=== PATIENT | male | born 1955 | race Caucasian/White ===

== ENCOUNTER 2019-01-14 16:53 | Inpatient (IN) ==
[2019-01-14] MEDS ORDERED: NS 1,000 ML ONE (17:29)
[2019-01-14] MEDS ORDERED: NS 1,000 ML IV ONE (17:31)
[2019-01-14] MEDS ORDERED: MORPHINE IV ONE (17:32)
[2019-01-14] MEDS ORDERED: ZOFRAN IV ONE (17:32)
[2019-01-14 17:47] LABS: BASO# 0.02 X1000 (0.0-0.2); BASO% 0.1 % (0.0-0.8); EOS# 0.06 X1000 (0.0-0.7); EOS% 0.3 % (0.0-10.0); HEMOGLOBIN 13.6 g/dL (14.0-18.0); IMM GRAN# 0.04 X1000 (0.0-0.04); IMM GRAN% 0.2 % (0.0-0.5); LYMPH# 2.34 X1000 (1.2-3.4); LYMPH% 13.6 % (20.5-51.1); MCH 30.2 PG (27-31); MCHC 33.2 g/dL (33-37); MCV 90.9 FL (81-99); MONO# 0.88 X1000 (0.11-0.59); MONO% 5.1 % (1.7-9.3); MPV 9.9 FL (7.4-10.4); NEUT% 80.7 % (42.2-75.2); PLT 365 X1000 (130-400); RBC 4.51 XMIL (4.7-6.1); RDW 14.4 % (11.5-14.5); WBC 17.24 X1000 (4.8-10.8)
--- NOTE | 2019-01-14 17:54 | EKG Report ---
Test Performed on : 01/14/2019 5:28:30 PM Test Reason : CP Blood Pressure : / mmHG Vent. Rate : 148 BPM Atrial Rate : 156 BPM P-R Int : 000 ms QRS Dur : 142 ms QT Int : 336 ms P-R-T Axes : 000 -31 001 degrees QTc Int : 527 ms Atrial fibrillation. with rapid ventricular response. Left axis deviation Right bundle branch block Abnormal ECG When compared with ECG of 23-MAY-2017 23:18, Atrial fibrillation. has replaced Sinus rhythm. Vent. rate has increased BY 67 BPM Unconfirmed Result
[2019-01-14 17:58] LABS: INR 1.17; PROTIME 15.5 Seconds (11.0-16.0)
[2019-01-14 17:59] LABS: PTT 28.9 Seconds (22.3-41.8)
[2019-01-14] MEDS ORDERED: LOPRESSOR IV ONE (18:10)
[2019-01-14 18:12] LABS: AGAP 15; ALBUMIN 3.9 g/dL (3.5-5.0); ALKALINE PHOSPHATASE 79 U/L (32-122); BUN 13 mg/dL (8-22); CALCIUM 9.4 mg/dL (8.8-10.2); CHLORIDE 100 mmol/L (98-107); COSMO 284; CREATININE 0.5 mg/dL (0.7-1.2); ESTIMATED GFR > 60; GLUCOSE 171 mg/dL (70-104); GOT 17 U/L (10-34); GPT 13 U/L (10-44); MAGNESIUM 1.5 mg/dL (1.5-2.7); POTASSIUM 3.5 mmol/L (3.5-5.1); SODIUM 140 mmol/L (136-145); TCO2 26 mmol/L (25-35); TOTAL PROTEIN 7.2 g/dL (6.3-8.3)
--- NOTE | 2019-01-14 18:24 | Diag Imaging Result Doc PS360 ---
EXAM: CHEST-PORTABLE HISTORY: CP TECHNIQUE: Portable chest COMPARISON: 11/13/2018 FINDINGS: The lungs are well expanded. The heart is not enlarged. The vessels are not distended. There are right lower lobe infiltrates. No effusion identified. IMPRESSION: Right lower lobe pneumonia. Electronically signed by Chun Tompkins 01/14/2019 6:22 PM
[2019-01-14] MEDS ORDERED: SOLU-MEDROL IV ONE (18:25)
[2019-01-14] MEDS ORDERED: ROCEPHIN 1 GM in NS 50 ML IV ONE (18:25)
--- NOTE | 2019-01-14 18:29 | PROVIDER DOCUMENTATION ---
This chart was entered by Shari Jones Scribe, acting as scribe for Abdirizak Amador MD. HPI-Respiratory General - General Chief Complaint: Shortness of Breath Stated Complaint: CP/SOB "ASPIRATING" X 3 DAYS Time Seen by Provider: 01/14/19 17:23 Source: patient, family () Allergies/Adverse Reactions: Patient Allergies Allergy/AdvReac Type Severity Reaction Status Date / Time Sulfa (Sulfonamide Allergy HIVES Verified 01/14/19 17:49 Antibiotics) ciprofloxacin [From Cipro] AdvReac NAUSEA/VOMI Verified 05/31/17 12:39 TING ciprofloxacin HCl * AdvReac NAUSEA/VOMI Verified 05/31/17 12:39 [From Cipro] TING Home Medications: Home Medication List Medication Instructions Recorded Confirmed Last Taken Type Aspirin 325 mg PO DAILY 01/14/19 01/14/19 Unknown History Atorvastatin Calcium [Lipitor] 40 mg PO DAILY 01/14/19 01/14/19 Unknown History Buprenorphine/Naloxone S.l. 8 mg SUBLINGUAL BID 01/14/19 01/14/19 Unknown History [Suboxone 8 mg/2 mg] Cetirizine HCl [Zyrtec] 10 mg PO DAILY 01/14/19 01/14/19 Unknown History Metoprolol Succinate E.r. [Toprol 25 mg PO BID 01/14/19 01/14/19 Unknown History Xl] Omeprazole 10 mg PO DAILY 01/14/19 01/14/19 Unknown History - History of Present Illness-Resp Nature of Presenting Problem: 63 yowm presents to the ed with c/o sob, trouble swallowing, gerd, fatigue, nausea, vomiting, decreased appetite, weakness, chest pain, cough with bloody sputum and subjective fever. pt sts sx have been intermittent and are getting worse. pt sees multiple dr's for sx and sts sx have been present for 1 year. pt on exam is mildly sob and is in afib with rvr Quality of Pain: reports: aching Severity in ED: reports: mild Onset/Duration: reports: other (1 year) Timing: reports: intermittent, getting worse (today) Exposure: reports: unknown cause Cough Quality/Degree: reports: mild, blood streaked sputum Episode Frequency: chronic episodes Current Respiratory Medication Therapy: Initiated see nurses note Modifying Factors: improves with: sitting upright. worse with: exertion, coughing Associated Symptoms: reports: chest pain/soreness, cough, fever/chills (subjective), heart racing, shortness of breath, other (sore throat) Similar Symptoms Previously?: Yes Recently seen or treated by another doctor?: Yes (has seen multiple dr's) Review of Systems - Adult - REVIEW OF SYSTEMS - ADULT Constitutional: reports: see HPI, chills, fever (subjective), fatique Eyes: reports: no symptoms reported Ears, Nose, Mouth & Throat: reports: see HPI, throat pain Cardiovascular: reports: see HPI, chest pain, palpitations Respiratory: reports: see HPI, chronic cough, dyspnea on exertion, shortness of breath Gastrointestinal: reports: see HPI, abdominal pain, difficulty swallowing, frequent heartburn, nausea, poor appetite, vomiting Genitourinary: reports: no symptoms reported Musculoskeletal: denies: back pain, neck pain Integumentary: reports: no symptoms reported Neurological: denies: dizziness/vertigo, headache/migraines Psychiatric: reports: no symptoms reported Endocrine: reports: no symptoms reported Hematologic/Lymphatic: reports: no symptoms reported Allergic/Immunologic: reports: no symptoms reported All Other Systems: Reviewed and Negative Past History - Adult - PAST MEDICAL HISTORY-ADULT Review of Records: reports: Old Records Reviewed, Nursing Assessment Review, Medications Reviewed, Social history reviewed & non-contributory. Major Childhood Illnesses: reports: denies history Cardiovascular: reports: A-Fib, CAD, HTN, hyperlipidemia Respiratory: reports: bronchitis, pneumonia, sleep apnea Gastrointestinal: reports: GERD Genitourinary: reports: denies history Musculoskeletal: reports: denies history Neurological: reports: denies history Psychiatric: reports: anxiety Endocrine/Immune: reports: denies history Other Conditions: reports: denies history - PRIOR SURGERIES/PROCEDURES Surgical/Procedure History: reports: orthopedic (extremity) - IMMUNIZATION STATUS Childhood Immunizations: See Nurse Assessment Flu Vaccine: See Nurse Assessment - FAMILY HISTORY Family History: reviewed, not pertinent - SOCIAL HISTORY Smoking: quit less than 1 year Substance Use: denies Living Situation: family Physical Exam-General - PHYSICAL EXAM-ADULT Initial Vital Signs Reviewed: Yes - CONSTITUTIONAL General Appearance: appears well, alert, mild distress, obese - EYES Eyes: PERRL/EOMI - HEAD, EARS, NOSE, MOUTH & THROAT HENMT: moist mucous membranes - NECK Neck: non-tender, full range of motion, normal inspection - RESPIRATORY Respiratory: chest non-tender, lungs clear, respiratory distress (mild sob 90% on RA), increased rate (24) - CARDIOVASCULAR Cardiovascular: normal peripheral pulses, irregularly irregular (135) - CHEST (BREASTS) Chest/Breast: no tenderness - GASTROINTESTINAL (ABDOMEN) Abdominal Exam: normal bowel sounds, non tender, soft - GENITOURINARY Male Genitalia: deferred Rectal Exam: deferred Hemoccult Exam: deferred - MUSCULOSKELETAL Back Exam: normal inspection, no CVA tenderness, no vertebral tenderness Extremity: normal range of motion, non-tender, normal gait, normal inspection - SKIN Integumentary: normal color, normal turgor, warm/dry - NEUROLOGIC Neurologic: grossly normal - PSYCHIATRIC Psych/Mental Status: normal mood/affect, normal thought content, normal thought process, oriented x 3 - HEART Score HEART Score: History: Slightly Suspicious HEART Score: ECG: Non-Specific Repolarization Disturbance/LBBB/PM HEART Score: Age: 45-65 Years HEART Score: Risk Factors for Atherosclerotic Disease: > or = 3 Risk Factors or History of Atherosclerotic Disease HEART Score: Troponin: < or = Normal Limit Total HEART Score:: 4 Progress - PLAN OF CARE/RESULTS Progress/Plan/Lab Results: Vital Signs - 8 hr 01/14/19 17:01 01/14/19 18:05 01/14/19 18:19 Temperature 97.8 F Pulse Rate 135 H 132 H 113 H Respiratory Rate 24 25 H 11 L Blood Pressure 118/73 128/101 129/79 O2 Sat by Pulse Oximetry 90 L 93 L Laboratory Results - last 24 hr 01/14/19 01/14/19 01/14/19 17:30 17:30 17:30 WBC 17.24 H RBC 4.51 L Hgb 13.6 L Hct 41.0 L MCV 90.9 MCH 30.2 MCHC 33.2 RDW Std Deviation 14.4 Plt Count 365 MPV 9.9 Immature Gran % (Auto) 0.2 Neut % (Auto) 80.7 H Lymph % (Auto) 13.6 L [place] % (Auto) 5.1 Eos % (Auto) 0.3 Baso % (Auto) 0.1 Immature Gran # (Auto) 0.04 Neut # (Auto) 13.90 H Lymph # (Auto) 2.34 [place] # (Auto) 0.88 H Eos # (Auto) 0.06 Baso # (Auto) 0.02 PT INR PTT (Actin FS) Sodium 140 Potassium 3.5 Chloride 100 Carbon Dioxide 26 Anion Gap 15 BUN 13 Creatinine 0.5 L Estimated GFR/1.73 m2 > 60 BUN/Creatinine Ratio 26 Glucose 171 H Calculated Osmolality 284 Calcium 9.4 Magnesium 1.5 Total Bilirubin 0.90 AST 17 ALT 13 Alkaline Phosphatase 79 Troponin T Uqi-U-Yhjummvdexs Pept Total Protein 7.2 Albumin 3.9 Globulin 3.0 Albumin/Globulin Ratio 1.0 Plasma Lactate 2.5 H 01/14/19 01/14/19 01/14/19 17:30 17:30 17:30 WBC RBC Hgb Hct MCV MCH MCHC RDW Std Deviation Plt Count MPV Immature Gran % (Auto) Neut % (Auto) Lymph % (Auto) [place] % (Auto) Eos % (Auto) Baso % (Auto) Immature Gran # (Auto) Neut # (Auto) Lymph # (Auto) [place] # (Auto) Eos # (Auto) Baso # (Auto) PT 15.5 INR 1.17 PTT (Actin FS) 28.9 Sodium Potassium Chloride Carbon Dioxide Anion Gap BUN Creatinine Estimated GFR/1.73 m2 BUN/Creatinine Ratio Glucose Calculated Osmolality Calcium Magnesium Total Bilirubin AST ALT Alkaline Phosphatase Troponin T < 0.010 [id number] Pept 472 H Total Protein Albumin Globulin Albumin/Globulin Ratio Plasma Lactate Orders Category Date Time Status Cardiac Monitoring DIRECTED Care 01/14/19 17:32 Active Oxygen Therapy- ED Nursing DIRECTED Care 01/14/19 17:43 Active Saline Loc NOW Care 01/14/19 17:32 Active CHEST-PORTABLE [RAD] Stat Exams 01/14/19 17:35 Completed BLOOD CULTURE [BLDCUL] Stat Lab 01/14/19 17:33 Ordered CBC WITH ELECTRONIC DIFF [HEME] Stat Lab 01/14/19 17:30 Completed COMPREHENSIVE METABOLIC PANEL [CHEM] Stat Lab 01/14/19 17:30 Completed FREE T4 Stat Lab 01/14/19 17:30 Received LACTATE, PLASMA [CHEM] Stat Lab 01/14/19 17:30 Completed MAGNESIUM [CHEM] Stat Lab 01/14/19 17:30 Completed PRO B-NATRIURETIC PEPTIDE Stat Lab 01/14/19 17:30 Completed PROTIME WITH INR [COAG] Stat Lab 01/14/19 17:30 Completed PTT [COAG] Stat Lab 01/14/19 17:30 Completed TROPONIN T Stat Lab 01/14/19 17:[address] W/POSS RFLX CULT [URINALYSIS] Stat Lab 01/14/19 17:35 Uncollected URINE DRUG SCREEN PL Stat Lab 01/14/19 17:35 Uncollected 0.9% Sodium Chloride Inj [Ns] 1,000 ml Med 01/14/19 17:29 Discontinued .ROUTE As directed 0.9% Sodium Chloride Inj [Ns] 1,000 ml Med 01/14/19 17:31 Active IV 999 mls/hr Metoprolol [Lopressor] Med 01/14/19 18:10 Discontinued 5 mg IV NOW ONE Morphine Med 01/14/19 17:32 Discontinued 4 mg IV NOW ONE Ondansetron [Zofran] Med 01/14/19 17:32 Discontinued 4 mg IV NOW ONE EKG [EKG] Stat Ther 01/14/19 17:33 Draft Result Diagrams: 01/14/19 17:30 01/14/19 17:30 - REASSESSMENT Reassessment #1 Time Reassessed: 17:48 Status: unchanged Reassessment #2 Time Reassessed: 18:26 Status: improving (HR DOWN TO 120, WBC 17K, PROBABLE FRESH INFILTRATE ON CHRONIC SCARS IN RIGHT CHEST. ADMIT TO ICU) - EKG 1 Time of EKG reading by physician:: 17:28 EKG Read and Signed by:: Abdirizak Amador EKG Interpretation (*Must complete 3 of following elements*): Abnormal Rate: 148 Rhythm: afib with rvr [place]: left (axis deviation) QRS: RBB CT Interval: normal ST Wave: normal - XRAY 1 XRAY: Bilateral XRAY Study: Chest Impression: See EMR Report - CONSULTS/PCP/HOSPITALIST Notification #1 *Consult/PCP/Hospitalist*: Yanna KIRKLAND Time Discussed: 18:15 Consult Disposition: Admit Departure - Departure Date of Disposition Decision: 01/14/19 Time of Disposition Decision: 18:27 DIAGNOSIS: Pneumonia, SOB (shortness of breath), Atrial fibrillation with RVR, Chest pain, Sepsis Disposition: ADMITTED INPATIENT 09 Certified Medical Emergency: Emergent Condition: Fair Referrals and Follow-Ups: Deion Fernandez MD [Primary Care Provider] - - Critical Care Note This patient required my direct & personal management of CC.: Yes Total Time (mins): 30 Critical Care Statement: This patient required my direct personal management to treat or rule out processes, the absence of which, could potentiallly result in sudden, clinically significant life or limb threatening deterioration. Attestation - Physician/ MARIO Attestation Patient care was provided by Advanced Practice Provider:: No The physician spent face to face time with patient:: Yes Advanced Practice Provider documentation review:: Supervising physician onsite and consulted in the evaluation and care of this patient. The physician did have a face to face encounter with the patient. This chart was documented by the indicated scribe, (Shari Jones Scribe) and accurately reflects the services I performed and decisions made by me, Abdirizak Frazier MD, as attested by the provider's signature.
[2019-01-14] MEDS ORDERED: ZITHROMAX 500 MG/NS 500 MG/250 ML IVPB IV SCH (18:45)
[2019-01-14] MEDS ORDERED: CARDIZEM 100 MG/NS 100 MG/100 ML IVPB IV SCH (19:06)
[2019-01-14] MEDS ORDERED: FLAGYL 500 MG/NS 500 MG/100 ML IVPB IV SCH (19:06)
[2019-01-14] MEDS: ZITHROMAX PO SCH (19:27)
[2019-01-14] MEDS: FLAGYL 500 MG/NS 500 MG/100 ML IVPB IV SCH (19:27)
[2019-01-14] MEDS: PROTONIX IV SCH (19:27)
[2019-01-14] MEDS: NS 1,000 ML IV SCH (19:27)
[2019-01-14] MEDS: SUBOXONE 8 MG/2 MG FILM SL SCH (20:00)
[2019-01-14] MEDS: ZOFRAN IV PRN (20:00)
[2019-01-14] MEDS: TYLENOL PO PRN (20:00)
[2019-01-14] MEDS: CARDIZEM 125 MG/D5W 125 MG/125 ML IVPB IV SCH (20:18)
[2019-01-14] MEDS ORDERED: SUBOXONE 8 MG/2 MG SL SCH (21:00)
[2019-01-14 22:10] LABS: BILIRUBIN URINE NEGATIVE (NEGATIVE); BLOOD URINE NEGATIVE (NEGATIVE); GLUCOSE URINE NEGATIVE (NEGATIVE); KETONE URINE NEGATIVE (NEGATIVE); LEUKOCYTES URINE NEGATIVE (NEGATIVE); NITRITE URINE NEGATIVE (NEGATIVE); PH URINE 6.5; PROTEIN URINE TRACE mg/dL (NEGATIVE); UROBILINOGEN URINE NORMAL
[2019-01-14 22:11] LABS: CLARITY CLEAR (CLEAR); COLOR YELLOW
[2019-01-14 22:20] LABS: URINE EPITHELIAL CELLS <10 /HPF (<10); URINE WBC <10 /HPF (<10)
[2019-01-14 22:21] LABS: URINE BACTERIA 1+ /HFP; URINE CAST NONE SEEN /LPF; URINE CRYSTAL NONE SEEN /HPF; URINE SOURCE CLEAN CATCH; URINE YEAST NONE SEEN /HPF
--- NOTE | 2019-01-14 23:34 | HISTORY AND PHYSICAL ---
ADDENDUM: Patient seen in the ER. He has a known history of what appears to be a diverticulum. 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 He has been told that he has to have surgery. He has been coughing and congestion for the past 2 or 3 months. Chest x-ray shows right lower lobe pneumonia. We are going to admit in the hospital. IV fluids, antibiotics. He is in atrial fibrillation and appears as though he has a history of atrial fibrillation per the chart as well as coronary artery disease, hyperlipidemia. We are going to place him in ICU on a Cardizem drip. We will not start Lovenox currently as he does have a history of blood-tinged sputum. We will continue to follow. Further orders as needed. cc: Alex Ceja MD
--- NOTE | 2019-01-14 23:44 | HISTORY AND PHYSICAL ---
CHIEF COMPLAINT: Shortness of breath, dysphagia, hemoptysis and fever. HISTORY OF PRESENT ILLNESS: This is a 63-year-old gentleman with a history of coronary artery disease, hypertension, sleep apnea, pulmonary fibrosis and chronic aspiration due to esophageal stricture, esophageal diverticulum and hiatal hernia. He presents to the emergency room complaining of increased dysphagia, shortness of breath, hemoptysis and nausea. The patient has had these symptoms for over a year. He is being followed by Dr. Hooker locally as well as a surgeon in [place] and a marketing assistant manager in [place]. The patient states that over the last week or 2, the symptoms have increased. Over the last 24 hours, they have greatly increased to where he got worried for his health. He did report hemoptysis that started yesterday. He denied any palpitations, syncope or dizziness. PAST MEDICAL HISTORY: Coronary artery disease, hypertension, hyperlipidemia, bronchitis, sleep apnea, gastroesophageal reflux disease, pulmonary fibrosis. PAST SURGICAL HISTORY: Right knee surgery and right hand surgery. SOCIAL HISTORY: He denies alcohol, tobacco, or illicit drug use. ALLERGIES: Sulfa and Cipro which cause hives, nausea and vomiting. HOME MEDICATIONS: A list will be obtained by the nursing staff and once verified will be restarted as appropriate. REVIEW OF SYSTEMS: Discussed with patient with pertinent positives stated in the HPI. He denied any syncope, dizziness, any hematemesis, emesis, any diarrhea, constipation, black or bloody stools, any hematuria, dysuria, frequency, urgency. PHYSICAL EXAMINATION: GENERAL: This is a 63-year-old gentleman who is sitting up in the bed in no distress. EYES: Pupils are equal, round, react to light. EOMs are intact. Sclerae anicteric. HENT: Head is normocephalic, atraumatic. Mucous membranes are moist. NECK: Supple with trachea midline. CARDIOVASCULAR: Irregularly irregular rate and rhythm. He is tachycardic. S1 and S2 appreciated. No lower extremity edema. Calves are nontender bilateral with peripheral pulses palpable x4 extremities. PULMONARY: Breath sounds are diminished in the bases with right greater than left. Chest rises and falls symmetric with respiration. He does have slight increased work of breathing. GASTROINTESTINAL: Abdomen is soft, nontender, nondistended with bowel sounds in all 4 quadrants. GENITOURINARY: He has no CVA or suprapubic tenderness. NEUROLOGIC: He is alert and oriented x3. SKIN: Warm and dry. LABORATORIES: WBC is 17 with hemoglobin 13.6, hematocrit 41, and platelets 365,000. Sodium 140, potassium 3.5, BUN 13, creatinine 0.5, glucose of 171. Troponin is less than 0.010. Blood cultures are pending. Chest x-ray reveals right lower lobe pneumonia. EKG reveals atrial fibrillation with rapid ventricular rate at a rate of 148. ASSESSMENT AND PLAN: 1. Atrial fibrillation with rapid ventricular response. The patient and deny having a prior diagnosis of atrial fibrillation. He does not feel palpitations. He will be placed in ICU. He will be placed on a Cardizem drip per protocol. We will hold off on any anticoagulation as he is having hemoptysis. ECHO. 2. Right lower lobe pneumonia, aspiration. Blood cultures have been obtained. We will try to get a sputum specimen. Give Flagyl and Zithromax for antibiotic coverage. 3. Chest pain secondary to #1 and 2. 4. Dysphagia. This is chronic. The patient is being followed by Dr. Hooker as well as a surgeon in [place]. He underwent a barium swallow in July of 2018. He was found to have a large distal esophageal diverticulum, distal esophageal stenosis as well as a sliding hiatal hernia. We will give Protonix IV, place him on clear liquids at present and order for the head of bed to be elevated at least 30 degrees at all times. 5. Leukocytosis secondary to pneumonia. Treatment as stated above. 6. History of coronary artery disease. The patient had an abnormal nuclear scan in July 2017. He reports being sent to [place], but after evaluation he reports being told that he did not have enough blockage for stents. Therefore, he was treated medical. 7. Obstructive sleep apnea. The patient has not had a evaluation in quite some time. He does not have a mask or a CPAP or BiPAP. We will continue with oxygen. 8. Gastroesophageal reflux disease. Protonix. 9. Hemoptysis. We will hold off on any anticoagulation. 10. For deep venous thrombosis prophylaxis, we will use SCDs. 11. For gastroesophageal prophylaxis, Protonix. Plan discussed with Dr Ceja Further treatments pending hospital course. Dictated by WENCESLAO Villalobos for Alex Ceja MD cc: WENCESLAO Villalobos MD [facility]
[2019-01-15] MEDS: FLAGYL 500 MG/NS 500 MG/100 ML IVPB IV SCH ×4 (01:29→20:46)
[2019-01-15 02:16] LABS: BASO# 0.01 X1000 (0.0-0.2); BASO% 0.1 % (0.0-0.8); HEMATOCRIT 44.4 % (42.0-52.0); HEMOGLOBIN 14.7 g/dL (14.0-18.0); IMM GRAN# 0.03 X1000 (0.0-0.04); IMM GRAN% 0.2 % (0.0-0.5); LYMPH% 7.3 % (20.5-51.1); MCH 30.1 PG (27-31); MCHC 33.1 g/dL (33-37); MONO# 0.17 X1000 (0.11-0.59); MONO% 1.4 % (1.7-9.3); MPV 9.5 FL (7.4-10.4); NEUT# 11.26 X1000 (1.4-6.5); PLT 337 X1000 (130-400); RBC 4.88 XMIL (4.7-6.1); RDW 14.5 % (11.5-14.5); WBC 12.37 X1000 (4.8-10.8)
[2019-01-15 02:43] LABS: AGAP 12; ALBUMIN 3.9 g/dL (3.5-5.0); ALKALINE PHOSPHATASE 76 U/L (32-122); BUN 13 mg/dL (8-22); CALCIUM 8.9 mg/dL (8.8-10.2); CHLORIDE 101 mmol/L (98-107); COSMO 282; CREATININE 0.5 mg/dL (0.7-1.2); ESTIMATED GFR > 60; GLUCOSE 174 mg/dL (70-104); GOT 13 U/L (10-34); GPT 12 U/L (10-44); POTASSIUM 4.4 mmol/L (3.5-5.1); SODIUM 139 mmol/L (136-145); TCO2 26 mmol/L (25-35)
[2019-01-15 02:49] LABS: LYMPHS 7 % (21-51); MONO 1 % (1-9); SEGS 90 % (42-75)
[2019-01-15 02:50] LABS: POIKILOCYTOSIS OCCASIONAL
[2019-01-15 02:51] LABS: OVALOCYTES OCCASIONAL; STOMATOCYTES OCCASIONAL
--- NOTE | 2019-01-15 04:53 | EKG Report ---
Test Performed on : 01/15/2019 04:42:29 AM Test Reason : AFIB RVR, Blood Pressure : / mmHG Vent. Rate : 108 BPM Atrial Rate : 127 BPM P-R Int : 000 ms QRS Dur : 150 ms QT Int : 390 ms P-R-T Axes : 000 -04 -12 degrees QTc Int : 522 ms Atrial fibrillation. with rapid ventricular response. Right bundle branch block T wave abnormality, consider inferior ischemia Abnormal ECG When compared with ECG of 14-JAN-2019 17:28, (Unconfirmed) No significant change was found Unconfirmed Result
[2019-01-15] MEDS: NS 1,000 ML IV SCH ×2 (06:32→20:46)
[2019-01-15] MEDS: ZITHROMAX PO SCH (09:48)
[2019-01-15] MEDS: PROTONIX IV SCH ×2 (09:49→20:45)
[2019-01-15] MEDS: SUBOXONE 8 MG/2 MG FILM SL SCH ×2 (09:49→20:49)
[2019-01-15] MEDS: CARDIZEM 125 MG/D5W 125 MG/125 ML IVPB IV SCH ×2 (11:24→22:47)
[2019-01-15 14:19] LABS: UR AMPHETAMINES QUAL PRESUMPTIVE POSITIVE (NONE DETECT); UR BARBITUATES QUAL NONE DETECTED (NONE DETECT); UR BENZODIAZEPIN QUAL NONE DETECTED (NONE DETECT); UR CANNABINOIDS QUAL NONE DETECTED (NONE DETECT); UR COCAINE QUAL NONE DETECTED (NONE DETECT); UR METHADONE QUAL NONE DETECTED (NONE DETECT); UR METHAMPHETAMINE QUAL NONE DETECTED (NONE DETECT); UR OPIATES QUAL PRESUMPTIVE POSITIVE (NONE DETECT); UR OXYCODONE QUAL NONE DETECTED (NONE DETECT); UR PCP QUAL NONE DETECTED (NONE DETECT); UR PROPOXYPHENE QUAL NONE DETECTED (NONE DETECT); UR TCA QUAL NONE DETECTED (NONE DETECT)
[2019-01-15] MEDS: ROCEPHIN 1 GM in NS 50 ML IV SCH (17:10)
--- NOTE | 2019-01-15 18:48 | ECHO REPORT ---
ORDER DATE: 01/14/2019 INDICATION: Atrial fibrillation, coronary heart disease. REQUESTING PHYSICIAN: Hospitalist. M-MODE MEASUREMENTS: Left ventricle end diastole: 5.4. Left ventricle end systole: 3.3. Posterior wall: 0.8. Interventricular septum: 0.8. Left atrium: 4.3. Aortic diameter: 3.5. SUMMARY OF 2-DIMENSIONAL IMAGIN. The study is difficult. Left ventricular function is excellent. The ejection fraction is 71%. 2. The aortic valve is normal. Color flow mapping unremarkable. 3. The mitral valve looks normal. Color flow mapping unremarkable. 4. Pulsed wave Doppler of mitral inflow shows single filling wave. 5. Diastolic function cannot be properly evaluated. 6. The pulmonic valve is normal. Color flow mapping unremarkable 7. The tricuspid valve shows a mild degree of regurgitation. The inferior vena cava is not dilated. Pulmonary pressure is estimated at 37 mmHg. 8. There is no pericardial effusion, mass, or thrombus. 9. The atria appear to be mildly enlarged. SUMMARY: This study shows: 1. Normal left ventricular systolic function. 2. Mild enlargement of the atria. 3. No significant valvular abnormality. 4. Pulmonary pressure estimated at 37 mmHg. Clinical correlation recommended. cc: MD Soila Escobedo CRNP
--- NOTE | 2019-01-16 00:55 | PROGRESS NOTE ---
DATE: 01/15/2019 SUBJECTIVE: Patient overall states he is feeling better. Still having some cough, congestion. Denies any fevers. PHYSICAL EXAMINATION: Vital Signs: Temperature 97.7 degrees, pulse 100, respiratory rate 18, BP low at 85/70 to 117/80. General: Patient is awake. Currently he is in no respiratory distress. Is receiving echo. HEENT: Normocephalic. Neck: Supple. Cardiovascular: Regular rate. Chest: Clear although decreased. Abdomen: Soft. Extremities: Moves all extremities. ASSESSMENT: 1. Atrial fibrillation with rapid ventricular response, currently appears rate controlled. 2. Right lower lobe pneumonia with recurrent aspiration. 3. Dysphagia. 4. Obstructive sleep apnea. 5. Leukocytosis, improved. PLAN: We will continue patient in the hospital. Continue to follow. Continue antibiotics, breathing treatments. Check an echocardiogram. Further orders as needed. cc: Alex Ceja MD
[2019-01-16] MEDS: FLAGYL 500 MG/NS 500 MG/100 ML IVPB IV SCH ×4 (02:16→20:07)
[2019-01-16 07:27] LABS: BASO# 0.01 X1000 (0.0-0.2); EOS# 0.04 X1000 (0.0-0.7); EOS% 0.2 % (0.0-10.0); HEMATOCRIT 41.4 % (42.0-52.0); HEMOGLOBIN 13.2 g/dL (14.0-18.0); IMM GRAN# 0.08 X1000 (0.0-0.04); IMM GRAN% 0.4 % (0.0-0.5); LYMPH# 2.77 X1000 (1.2-3.4); LYMPH% 12.2 % (20.5-51.1); MCH 29.9 PG (27-31); MCHC 31.9 g/dL (33-37); MCV 93.7 FL (81-99); MONO# 1.58 X1000 (0.11-0.59); MPV 10.6 FL (7.4-10.4); NEUT% 80.2 % (42.2-75.2); PLT 344 X1000 (130-400); RBC 4.42 XMIL (4.7-6.1); RDW 14.7 % (11.5-14.5); WBC 22.68 X1000 (4.8-10.8)
[2019-01-16] MEDS: PROTONIX IV SCH ×2 (08:41→20:07)
[2019-01-16] MEDS: ZITHROMAX PO SCH (08:41)
[2019-01-16] MEDS: SUBOXONE 8 MG/2 MG FILM SL SCH ×2 (08:42→20:07)
[2019-01-16] MEDS: SODIUM CHLORIDE 0.9% INJ SCH (08:42)
[2019-01-16 08:50] LABS: LYMPHS 13 % (21-51); MONO 8 % (1-9); SEGS 79 % (42-75)
[2019-01-16] MEDS ORDERED: CARDIZEM PO SCH ×2 (14:00→21:00)
[2019-01-16] MEDS: ROCEPHIN 1 GM in NS 50 ML IV SCH (17:29)
[2019-01-16] MEDS: NS 1,000 ML IV SCH (17:29)
--- NOTE | 2019-01-16 18:55 | PROGRESS NOTE ---
DATE: 01/16/2019 SUBJECTIVE: The patient notes that he is feeling a lot better. Still has some shortness of breath, but it is improved. Denies any production to his cough. Has not had any fever. OBJECTIVE/PHYSICAL EXAMINATION: Vital Signs: Temperature 97, pulse 100, respiratory rate 18, BP 100 systolic. HEENT: Normocephalic. Neck: Supple. Cardiovascular: Regular rate. Chest: Much improved air movement. No current crackles, no wheezing. Abdomen: Soft. Extremities: Moves all extremities. ASSESSMENT: 1. Atrial fibrillation, currently rate controlled. 2. Right lower lobe pneumonia with hemoptysis, improved. 3. Dysphagia, chronic. 4. Leukocytosis. White count actually elevated at 22 after having been low at 12 yesterday, undetermined significance. We will continue to follow. PLAN: We will continue patient in the hospital. Hopefully we can transition him out of the ICU. We will continue antibiotics, breathing treatments, oxygen. cc: Alex Ceja MD
[2019-01-16] MEDS ORDERED: LOVENOX 1 MG/KG SUBQ SCH (19:45)
[2019-01-16] MEDS: ZOFRAN IV PRN (20:07)
[2019-01-16] MEDS: TYLENOL PO PRN (20:07)
[2019-01-16] MEDS: LOVENOX SUBQ SCH (20:10)
[2019-01-16] MEDS: LOPRESSOR PO SCH (20:10)
--- NOTE | 2019-01-16 20:21 | CONSULTATION ---
DATE OF CONSULTATION: 01/16/2019 IMPRESSION: 1. Recent onset atrial fibrillation, rapid ventricular rate. 2. Pneumonia. 3. Mild coronary atherosclerosis by previous coronary angiography last year. Patient has no angina. 4. Pulmonary fibrosis. 5. Recurrent aspiration. 6. Gastroesophageal reflux disease. 7. Hypertension. 8. Hyperlipidemia. RECOMMENDATIONS: 1. Manage atrial fibrillation with rate control and anticoagulation. Initiate metoprolol as diltiazem is continued in long-acting form. 2. Anticoagulate with Lovenox 1 mg/kg subcutaneously q.12. 3. If atrial fibrillation persists, may consider pursuit of RIA cardioversion in delayed fashion but this should certainly await further treatment of his pneumonia. HISTORY: This 63-year-old white male with past history of pulmonary fibrosis, chronic recurrent aspiration due to esophageal stricture, gastroesophageal reflux disease/hiatal hernia, esophageal diverticulum, hypertension, mild coronary atherosclerosis was admitted with progressive shortness of breath and hemoptysis. He has been found to have pneumonia and has been started on parental antibiotics. He is also found to be in atrial fibrillation with rapid ventricular rate on presentation. Has been started on intravenous Cardizem and is transitioning to oral Cardizem. He continues with tendency for tachycardia despite current treatment. He reports progressive dyspnea symptoms over the past few weeks. He has had some chronic tendency for hemoptysis but this has gotten worse over the past week as well. There has been no orthopnea nor angina. He was not aware of his atrial fibrillation. He had coronary angiography last year which demonstrated mild coronary atherosclerosis. PAST MEDICAL HISTORY: 1. Mild coronary atherosclerosis by coronary angiography last year. 2. Pulmonary fibrosis. 3. Recurrent aspiration in setting of gastroesophageal reflux disease/hiatal hernia, esophageal stricture, esophageal diverticulum. 4. Obstructive sleep apnea. 5. Chronic recurrent bronchitis. 6. Hyperlipidemia. 7. Hypertension. PAST SURGICAL HISTORY: Includes right knee surgery and right hand surgery. ALLERGIES: He is allergic or intolerant to sulfa, ciprofloxacin . MEDICATIONS PRIOR TO ADMISSION: As listed. 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 He quit smoking in April. He does not use alcohol. FAMILY HISTORY: Negative for premature coronary disease. REVIEW OF SYSTEMS: Pulmonary: Noteworthy for progressive dyspnea and hemoptysis. Gastrointestinal: Noteworthy for gastroesophageal reflux disease with tendency for aspiration. Constitutional: noncontributory. Remainder review of systems negative/noncontributory with 14 total systems reviewed. PHYSICAL EXAMINATION: General: This is a older middle-aged white male in no distress on supplemental oxygen per nasal cannula who appears older than stated age. Vital Signs: Blood pressure 102/68, heart rate 90 to 110 and irregular with ECG monitor showing atrial fibrillation. Oxygen saturation 93 to 98% on nasal cannula oxygen at 3 L/minute. HEENT: Extraocular movements intact. Mucous membranes are moist. Neck: Supple without jugular venous distention. There are no carotid bruits. Chest: Auscultating chest reveals few scattered expiratory wheezes. Cardiac: Reveals an irregular rate and rhythm without appreciable murmur or gallop. Abdomen: Soft. Bowel sounds are normal. Extremities: Without edema. Neurologic: Reveals him to be alert and fully oriented. Speech is fluent. He moves all 4 extremities equally well. Skin: Warm, dry. Psychiatric: Reveals mood to be appropriate. DATA: Twelve lead EKG demonstrates atrial fibrillation with rapid ventricular rate and right bundle branch block. Echocardiography performed this admission demonstrates normal left ventricular ejection fraction and mild atrial enlargement. LABORATORY DATA: Includes a white blood cell count 22.68, hematocrit 41.4, hemoglobin 13.2, platelet count 344,000. Sodium 139, potassium 4.4, chloride 101, carbon dioxide 26, BUN 13, creatinine 0.5, glucose 174. Initial troponin T less than 0.01. Followup troponin T less than 0.01. Pro-B natriuretic peptide level 472. Free T4 1.01. cc: Asif Breaux MD
[2019-01-17] MEDS: FLAGYL 500 MG/NS 500 MG/100 ML IVPB IV SCH ×3 (02:28→15:18)
[2019-01-17 06:34] LABS: HEMATOCRIT 39.9 % (42.0-52.0); HEMOGLOBIN 12.6 g/dL (14.0-18.0); IMM GRAN# 0.03 X1000 (0.0-0.04); IMM GRAN% 0.4 % (0.0-0.5); LYMPH% 10.4 % (20.5-51.1); MCH 29.4 PG (27-31); MCHC 31.6 g/dL (33-37); MCV 93.2 FL (81-99); MONO# 0.24 X1000 (0.11-0.59); MONO% 3.1 % (1.7-9.3); MPV 9.9 FL (7.4-10.4); NEUT# 6.65 X1000 (1.4-6.5); NEUT% 86.1 % (42.2-75.2); PLT 328 X1000 (130-400); RBC 4.28 XMIL (4.7-6.1); RDW 14.4 % (11.5-14.5); WBC 7.72 X1000 (4.8-10.8)
[2019-01-17] MEDS: LOPRESSOR PO SCH ×3 (06:36→20:44)
[2019-01-17] MEDS: NS 1,000 ML IV SCH (07:02)
[2019-01-17 07:17] LABS: LYMPHS 10 % (21-51); MONO 3 % (1-9); SEGS 87 % (42-75)
[2019-01-17] MEDS ORDERED: CARDIZEM CD ONE (09:05)
[2019-01-17] MEDS: CARDIZEM CD PO SCH (09:16)
[2019-01-17] MEDS: SODIUM CHLORIDE 0.9% INJ SCH (09:17)
[2019-01-17] MEDS: PROTONIX IV SCH ×2 (09:17→20:38)
[2019-01-17] MEDS: SUBOXONE 8 MG/2 MG FILM SL SCH ×2 (09:17→20:44)
[2019-01-17] MEDS: ZITHROMAX PO SCH (09:17)
[2019-01-17] MEDS: LOVENOX SUBQ SCH ×2 (09:18→20:44)
[2019-01-17] MEDS: ROCEPHIN 1 GM in NS 50 ML IV SCH (16:59)
--- NOTE | 2019-01-17 18:39 | PROGRESS NOTE ---
DATE: 01/17/2019 SUBJECTIVE: Patient notes that overall he is feeling better. Denies any chest pains or palpitations. Denies fevers. States his shortness of breath has improved. He currently is in sinus rhythm. PHYSICAL EXAMINATION: Vital Signs: Temperature 97, pulse 67 in regular sinus rhythm, BP 118/75. General: Patient is awake, currently in no distress. He is pleasant to talk with. HEENT: Normocephalic. Neck: Supple. Cardiovascular: Regular rate. Chest: Clear. Abdomen: Soft. Extremities: Moves all extremities. Neurologic: No focal changes. Skin: Warm, dry. No rashes. ASSESSMENT: 1. Atrial fibrillation, currently back in sinus rhythm. We will continue Cardizem CD as well as Toprol. 2. Right lower lobe pneumonia. Continue his Rocephin and azithromycin. 3. Dysphagia. Again discussed with patient that he most likely will have to have surgery to repair his esophageal diverticula, as I believe this is what is causing his pneumonia. 4. Obstructive sleep apnea. PLAN: We will continue patient in the hospital. We will transfer him to the floor and will follow. cc: Alex Ceja MD
[2019-01-17] MEDS: FLAGYL PO SCH (20:44)
[2019-01-17] MEDS ORDERED: LIPITOR PO SCH (21:00)
[2019-01-18] MEDS: LOPRESSOR PO SCH ×2 (05:41→12:41)
[2019-01-18] MEDS: PRILOSEC PO SCH ×2 (05:42→06:20)
[2019-01-18 06:53] LABS: BASO# 0.02 X1000 (0.0-0.2); BASO% 0.1 % (0.0-0.8); HEMATOCRIT 40.6 % (42.0-52.0); HEMOGLOBIN 13.1 g/dL (14.0-18.0); IMM GRAN# 0.13 X1000 (0.0-0.04); IMM GRAN% 0.8 % (0.0-0.5); LYMPH# 2.69 X1000 (1.2-3.4); LYMPH% 17.3 % (20.5-51.1); MCH 29.8 PG (27-31); MCHC 32.3 g/dL (33-37); MCV 92.3 FL (81-99); MONO# 1.39 X1000 (0.11-0.59); MPV 9.8 FL (7.4-10.4); NEUT% 72.8 % (42.2-75.2); PLT 357 X1000 (130-400); RDW 14.3 % (11.5-14.5); WBC 15.53 X1000 (4.8-10.8)
[2019-01-18 07:05] LABS: AGAP 10; BUN 14 mg/dL (8-22); CALCIUM 8.6 mg/dL (8.8-10.2); CHLORIDE 100 mmol/L (98-107); COSMO 287; CREATININE 0.4 mg/dL (0.7-1.2); ESTIMATED GFR > 60; GLUCOSE 119 mg/dL (70-104); POTASSIUM 3.3 mmol/L (3.5-5.1); SODIUM 143 mmol/L (136-145); TCO2 33 mmol/L (25-35)
[2019-01-18] MEDS: SUBOXONE 8 MG/2 MG FILM SL SCH (09:31)
[2019-01-18] MEDS: LOVENOX SUBQ SCH (09:31)
[2019-01-18] MEDS: FLAGYL PO SCH ×2 (09:31→12:41)
[2019-01-18] MEDS: ZITHROMAX PO SCH (09:31)
[2019-01-18] MEDS: CARDIZEM CD PO SCH (09:31)
[2019-01-18 10:20] VITALS: BP 126/85
[2019-01-18] MEDS ORDERED: KLOR-CON PO ONE (10:20)
[2019-01-18] MEDS ORDERED: PNEUMOVAX 23 IM ONE (13:44)
--- NOTE | 2019-01-18 17:48 | DISCHARGE SUMMARY ---
ADMISSION DATE: 01/14/2019 DISCHARGE DATE: 01/18/2019 DISCHARGE DIAGNOSES: 1. Atrial fibrillation with rapid ventricular response; currently he is in sinus rhythm. 2. Right lower lobe pneumonia with recurrent aspiration. 3. Recurrent aspiration secondary to esophageal diverticula. 4. Esophageal diverticulum. The patient has an outpatient surgeon already but has declined intervention thus far. 5. Leukocytosis, improved. 6. Known coronary artery disease. 7. Obstructive sleep apnea. 8. Hemoptysis, resolved. CONSULTATIONS: Cardiology. PROCEDURES: None. BRIEF HOSPITAL COURSE: The patient is a 63-year-old male who presented to [facility] ER secondary to coughing, congestion, shortness of breath. The patient notes that he has been coughing for the past several months. He was admitted, placed in the ICU due to atrial fibrillation with RVR. Thankfully he continued to improve. Cardiology was consulted and adjusted Cardizem as well as placed him on metoprolol. Thankfully on discharge he is awake, alert. He is in no distress. He is ambulating in the holt without any difficulty. Did not require oxygen. He has had continued cough but improved. He is no longer having hemoptysis. DISPOSITION: Patient will be discharged home. Discussed with him that he needs to follow up outpatient with Cardiology as he should have a repeat stress test prior to having surgical intervention on his diverticulum. However, he does need surgical intervention of his diverticulum. We will continue his CPAP at home. We will discharge him home on antibiotics for a total 7 day course. Greater than 30 minutes was spent in discharge care. cc: Alex Ceja MD
[2019-01-18] MEDS ORDERED: FLAGYL PO SCH (21:00)
== END 2019-01-18 14:25 | disposition home or self-care (01) | DRG 308 ==
LOC: P.ED 16:53 → P.ICU 18:44 → P.MEDSURG 01-17 15:44
PROVIDERS: ATTEND Family Medicine